=== PATIENT | female | born 1965 | race African-American/Black ===

== ENCOUNTER 2018-08-18 22:56 | Emergency (ER) | payer SELFPAY ==
--- NOTE | 2018-08-19 01:38 | ED ---
Throat Pain/Nasal Congestion - HPI Summary HPI Summary: The pt is a 53 y/o female presenting to [facility] c/o epistaxis that started after sneezing at 22:00 hrs. As per EMS, the bleeding has stopped by the time they picked the patient. The pt reports marijuana use and unquantified ETOH consumption. She reports associated blood clots. She reports a history of nosebleed but said this one was extensive. She denies any trauma. There was no active bleeding at the time of arrival. - History of Current Complaint Chief Complaint: EDEpistaxis Time Seen by Provider: 08/19/18 01:26 Hx Obtained From: Patient, EMS Onset/Duration: Sudden Onset - 22:00 hrs Severity: Moderate - Allergies/Home Medications Allergies/Adverse Reactions: Allergies Allergy/AdvReac Type Severity Reaction Status Date / Time pollen extracts Allergy Eyes Verified 08/18/18 23:06 Itchy/Swollen/Red/Watery PMH/Surg Hx/FS Hx/Imm Hx Previously Healthy: No Endocrine/Hematology History: Reports: Hx Sickle Cell Disease - Full blown Cardiovascular History: Reports: Hx Myocardial Infarction - x 2 GI History: Reports: Hx Gastrointestinal Bleed Neurological History: Reports: Hx Seizures - Cancer History Cancer Type, Location and Year: None reported - Immunization History Date of Tetanus Vaccine: unsure Date of Influenza Vaccine: never Infectious Disease History: No Infectious Disease History: Denies: Traveled Outside the [place] in Last 30 Days - Family History Known Family History: Positive: Blood Disorder - Sickle cell trait - Social History Occupation: Unemployed Lives: Alone Alcohol Use: Daily Alcohol Amount: unk Hx Substance Use: Yes Substance Use Type: Reports: Cocaine Substance Use Comment - Amount & Last Used: crack - today Hx Tobacco Use: Yes Smoking Status (MU): Current Every Day Smoker Review of Systems Positive: Fatigue Positive: Epistaxis - With blood clots All Other Systems Reviewed And Are Negative: Yes Physical Exam - Summary Physical Exam Summary: GENERAL: Patient is a well developed and nourished F who is lying comfortable in the stretcher. Patient is not in any acute respiratory distress. HEAD AND FACE: Normocephalic EYES: PERRLA, EOMI x 2. EARS: Hearing grossly intact. MOUTH: Oropharynx within normal limits. NECK: Supple, trachea is midline, no adenopathy, no JVD, no carotid bruit. CHEST: Symmetric, no tenderness at palpation LUNGS: Clear to auscultation bilaterally. No wheezing or crackles. CVS: Regular rate and rhythm, S1 and S2 present, no murmurs or gallops appreciated. ABDOMEN: Soft, non-tender. Bowel sounds are normal. No abdominal abnormal pulsations. EXTREMITIES: Full ROM in all major joints, no edema, no cyanosis or clubbing. NEURO: Alert and oriented x 3. No acute neurological deficits. Speech is normal and follows commands. SKIN: Dry and warm Triage Information Reviewed: Yes Vital Signs On Initial Exam: Initial Vitals Temp Pulse Resp BP Pulse Ox 97.8 F 66 16 119/64 98 08/18/18 23:04 08/18/18 23:04 08/18/18 23:04 08/18/18 23:04 08/18/18 23:04 Vital Signs Reviewed: Yes Diagnostics - Vital Signs Vital Signs Temp Pulse Resp BP Pulse Ox 08/18/18 23:04 97.8 F 66 16 119/64 98 - Laboratory Lab Statement: Any lab studies that have been ordered have been reviewed, and results considered in the medical decision making process. EENT Course/Dx - Course Course Of Treatment: A 53 year-old F presents to the ED with a CC of sudden onset epistaxis without active bleeding. Bleeding subsided prior to arrival to the emergency room. The pt reports marijuana use and unquantified ETOH consumption. Patient was observed here in the emergency room for an extended period of time with no evidence of epistaxis. The patient was given a meal and was able to ambulate here in the emergency room without difficulty. A physical exam is unremarkable. The pt will be discharged with a final Dx of epistaxis. I discussed results with patient and she agrees with this plan. She is hemodynamically stable upon discharge. Strict return precautions given and she will otherwise follow up with an ENT specialist. Allergies noted. - Diagnoses Provider Diagnoses: Epistaxis not due to trauma Discharge - Sign-Out/Discharge Documenting (check all that apply): Patient Departure - DC - Discharge Plan Condition: Improved Disposition: HOME Patient Education Materials: Nosebleed (ED) Referrals: Ivan Mays MD [Primary Care Provider] - Jhonny Vaughn MD [Medical Doctor] - Additional Instructions: Follow up with ENT as soon as possible. Return to ED for any new or worsening symptoms - Billing Disposition and Condition Condition: IMPROVED Disposition: Home - Attestation Statements Document Initiated by Brendenibisrrael: Yes Documenting Scribe: Sara Bliar Provider For Whom Chante is Documenting (Include Credential): Dr. Adriel Frey MD Scribe Attestation: Sara Greco , scribed for Dr. Adriel Frey MD on 08/19/18 at 0635. Scribe Documentation Reviewed: Yes Provider Attestation: The documentation as recorded by the brendenibSara arcos accurately reflects the service I personally performed and the decisions made by me, Dr. Adriel Frey MD
[2018-08-19 03:07] VITALS: BP 109/67
== END 2018-08-19 03:06 | disposition home or self-care (01) ==
LOC: ED 22:56
DX: R04.0 Epistaxis (principal); R53.83 Other fatigue; F17.200 Nicotine dependence, unspecified, uncomplicated
CPT/HCPCS: 99281

== ENCOUNTER 2019-02-27 15:10 | Emergency (ER) | payer SELFPAY ==
[2019-02-27 16:07] LABS: Hematocrit 37 % (35-47); Hemoglobin 12.3 g/dL (12.0-16.0); Mean Corpuscular HGB Conc 34 g/dL (31-36); Mean Corpuscular Hemoglobin 28 pg (27-31); Mean Corpuscular Volume 85 fL (80-97); Red Blood Count 4.33 10^6 /uL (3.70-4.87); Red Cell Distribution Width 14 % (10.5-15); White Blood Count 6.4 10^3/uL (3.5-10.8)
[2019-02-27 16:35] LABS: Mean Platelet Volume 10.9 fL (7.4-10.4); Platelet Count 59 10^3/uL (150-450)
[2019-02-27 16:36] LABS: ABS Eosinophils 0.2 10^3/ul (0-0.6); ABS Lymphocytes 4.2 10^3/ul (1.0-4.8); ABS Monocytes 0.7 10^3/ul (0-0.8); ABS Neutrophils 1.4 10^3/ul (1.5-7.7); Eosinophil % 2.5 %; Large Platelets Present; Lymphocyte % 64.8 %; Nucleated Red Blood Cells % 0.2
[2019-02-27 16:50] LABS: Albumin 3.3 g/dL (3.2-5.2); Calcium 9.3 mg/dL (8.6-10.3); Potassium 4.3 mmol/L (3.5-5.0); Total Bilirubin 0.5 mg/dL (0.2-1.0)
--- NOTE | 2019-02-27 16:57 | ED ---
HPI Chest Pain - HPI Summary HPI Summary: This patient is a 54 year old F brought in by EMS is presenting to [facility] with a chief complaint of mid sternal chest pain that is described as something pulling my chest apart. Patient rates the pain 10/10. The pain started a couple hours ago and has been constant since onset. Patient reports that she has been coughing for the past 2 weeks. She additionally endorses congestion. Breathing and movement aggravates the pain. Patient reports associated symptoms of swelling in the legs and muscle cramps. Patient denies abdominal pain, fever , rhinorrhea, and sore throat. She reports no alleviating factors. Patient has a Hx of cocaine usage. - History of Current Complaint Chief Complaint: EDUpperRespComplaint Time Seen by Provider: 02/27/19 15:23 Hx Obtained From: Patient Onset/Duration: Started Hours Ago, Still Present Timing: Constant, Lasting Hours Initial Severity: Severe Current Severity: Severe Pain Intensity: 9 Pain Scale Used: 0-10 Numeric Chest Pain Location: Mid Sternal Chest Pain Radiates: No Character: Other: - "pulling my chest apart" Aggravating Factor(s): Movement, Deep Breaths Alleviating Factor(s): Nothing Associated Signs and Symptoms: Positive: Chest Pain, Swelling - BLE, Nonproductive Cough - 2 weeks prior to chest pain, Other: - muscle cramps, congestion; no rhinorrhea, no sore throat. Negative: Fever, Abdominal Pain - Allergy/Home Medications Allergies/Adverse Reactions: Allergies Allergy/AdvReac Type Severity Reaction Status Date / Time pollen extracts Allergy Eyes Verified 08/18/18 23:06 Itchy/Swollen/Red/Watery PMH/Surg Hx/FS Hx/Imm Hx Previously Healthy: No Endocrine/Hematology History: Reports: Hx Sickle Cell Disease - Full blown Cardiovascular History: Reports: Hx Myocardial Infarction - x 2 GI History: Reports: Hx Gastrointestinal Bleed Neurological History: Reports: Hx Seizures - Cancer History Cancer Type, Location and Year: None reported - Immunization History Date of Tetanus Vaccine: unsure Date of Influenza Vaccine: never Infectious Disease History: No Infectious Disease History: Denies: Traveled Outside the [place] in Last 30 Days - Family History Known Family History: Positive: Blood Disorder - Sickle cell trait - Social History Alcohol Use: Daily Alcohol Amount: unk Hx Substance Use: Yes Substance Use Type: Reports: Cocaine Substance Use Comment - Amount & Last Used: crack - today Hx Tobacco Use: Yes Smoking Status (MU): Current Every Day Smoker Review of Systems Negative: Fever ENT: Other - POSITIVE - CHEST PAIN Negative: Sore Throat, Nasal Discharge Positive: Chest Pain Positive: Cough - 2 weeks Negative: Abdominal Pain Positive: Edema - in legs, Other - muscle cramps All Other Systems Reviewed And Are Negative: Yes Physical Exam - Summary Physical Exam Summary: Appearance: The patient is well-nourished in no acute distress and in no acute pain. Skin: The skin is warm and dry and skin color reflects adequate perfusion. HEENT: The head is normocephalic and atraumatic. The pupils are equal and reactive. The conjunctivae are clear and without drainage. Nares are patent and without drainage. Mouth reveals moist mucous membranes and the throat is without erythema and exudate. The external ears are intact. The ear canals are patent and without drainage. The tympanic membranes are intact. Neck: The neck is supple with full range of motion and non-tender. There are no carotid bruits. There is no neck vein distension. Respiratory: Chest is non-tender. Lungs are clear to auscultation and breath sounds are symmetrical and equal. Cardiovascular: Heart is regular rate and rhythm. There is no murmur or rub auscultated. There is no peripheral edema and pulses are symmetrical and equal. Abdomen: The abdomen is soft and non-tender. There are normal bowel sounds heard in all four quadrants and there is no organomegaly palpated. Musculoskeletal: There is no back tenderness noted. Extremities are non-tender with full range of motion. There is good capillary refill. There is no peripheral edema or calf tenderness elicited. Neurological: Patient is alert and oriented to person, place and time. The patient has symmetrical motor strength in all four extremities. Cranial nerves are grossly intact. Deep tendon reflexes are symmetrical and equal in all four extremities. Psychiatric: The patient has an appropriate affect and does not exhibit any anxiety or depression Triage Information Reviewed: Yes Vital Signs On Initial Exam: Initial Vitals Temp Pulse Resp BP Pulse Ox 98.4 F 80 15 118/69 95 02/27/19 15:17 02/27/19 15:17 02/27/19 15:17 02/27/19 15:17 02/27/19 15:17 Vital Signs Reviewed: Yes Diagnostics - Vital Signs Vital Signs Temp Pulse Resp BP Pulse Ox 02/27/19 16:22 79 107/72 99 02/27/19 16:00 79 99 02/27/19 15:35 91 98 02/27/19 15:20 98.4 F 78 16 118/69 100 02/27/19 15:17 98.4 F 80 15 118/69 95 - Laboratory Lab Results: Lab Results 02/27/19 02/27/19 02/27/19 Range/Units 15:37 15:37 15:37 WBC 6.4 (3.5-10.8) 10^3/uL RBC 4.33 (3.70-4.87) 10^6 /uL Hgb 12.3 (12.0-16.0) g/dL Hct 37 (35-47) % MCV 85 (80-97) fL MCH 28 (27-31) pg MCHC 34 (31-36) g/dL RDW 14 (10.5-15) % Plt Count 59 L (150-450) 10^3/uL MPV 10.9 H (7.4-10.4) fL Neut % (Auto) 21.6 % Lymph % (Auto) 64.8 % Rock % (Auto) 10.6 % Eos % (Auto) 2.5 % Baso % (Auto) 0.5 % Absolute Neuts (auto) 1.4 L (1.5-7.7) 10^3/ul Absolute Lymphs (auto) 4.2 (1.0-4.8) 10^3/ul Absolute Monos (auto) 0.7 (0-0.8) 10^3/ul Absolute Eos (auto) 0.2 (0-0.6) 10^3/ul Absolute Basos (auto) 0.0 (0-0.2) 10^3/ul Absolute Nucleated RBC 0.0 10^3/ul Nucleated RBC % 0.2 Large Platelets Present Hem Pathologist Commnt Pending Sodium 142 (135-145) mmol/L Potassium 4.3 (3.5-5.0) mmol/L Chloride 106 (101-111) mmol/L Carbon Dioxide 28 (22-32) mmol/L Anion Gap 8 (2-11) mmol/L BUN Pending Creatinine Pending Est GFR ( Amer) Pending Est GFR (Non-Af Amer) Pending BUN/Creatinine Ratio Pending Glucose Pending Lactic Acid 2.0 (0.5-2.0) mmol/L Calcium 9.3 (8.6-10.3) mg/dL Total Bilirubin 0.50 (0.2-1.0) mg/dL AST Pending ALT Pending Alkaline Phosphatase Pending Troponin I Pending Total Protein Pending Albumin 3.3 (3.2-5.2) g/dL Globulin Pending Albumin/Globulin Ratio Pending 02/27/19 Range/Units 15:58 WBC (3.5-10.8) 10^3/uL RBC (3.70-4.87) 10^6 /uL Hgb (12.0-16.0) g/dL Hct (35-47) % MCV (80-97) fL MCH (27-31) pg MCHC (31-36) g/dL RDW (10.5-15) % Plt Count (150-450) 10^3/uL MPV (7.4-10.4) fL Neut % (Auto) % Lymph % (Auto) % Rock % (Auto) % Eos % (Auto) % Baso % (Auto) % Absolute Neuts (auto) (1.5-7.7) 10^3/ul Absolute Lymphs (auto) (1.0-4.8) 10^3/ul Absolute Monos (auto) (0-0.8) 10^3/ul Absolute Eos (auto) (0-0.6) 10^3/ul Absolute Basos (auto) (0-0.2) 10^3/ul Absolute Nucleated RBC 10^3/ul Nucleated RBC % Large Platelets Hem Pathologist Commnt Sodium (135-145) mmol/L Potassium (3.5-5.0) mmol/L Chloride (101-111) mmol/L Carbon Dioxide (22-32) mmol/L Anion Gap (2-11) mmol/L BUN Creatinine Est GFR ( Amer) Est GFR (Non-Af Amer) BUN/Creatinine Ratio Glucose Lactic Acid (0.5-2.0) mmol/L Calcium (8.6-10.3) mg/dL Total Bilirubin (0.2-1.0) mg/dL AST ALT Alkaline Phosphatase Troponin I 0.01 Total Protein Albumin (3.2-5.2) g/dL Globulin Albumin/Globulin Ratio Result Diagrams: 02/27/19 15:37 02/27/19 15:37 Lab Statement: Any lab studies that have been ordered have been reviewed, and results considered in the medical decision making process. - Radiology CXR Radiology Interpretation Completed By: Radiologist Summary of Radiographic Findings: NO ACTIVE CARDIOPULMONARY DISEASE IS NOTED. ED physician has reviewed this report. Chest Pain Course/Dx - Course Course Of Treatment: Ms. Hernandez presents complaining that she's been coughing a lot for the last couple of weeks and now she has a tearing chest pain. It's aggravated by deep breaths and cough. She is not short of breath. She was nontoxic in appearance with stable vital signs and kept on the monitor while workup was in progress. She had 2 negative troponins as well as chest x-ray and EKG. Her urine did come back positive for cocaine but she felt complaint lately improved after some Robitussin with codeine. And again her troponins and EKG were unremarkable. - Diagnoses Provider Diagnoses: Chest wall pain Discharge - Sign-Out/Discharge Documenting (check all that apply): Patient Departure - discharge Patient Received Moderate/Deep Sedation with Procedure: No - Discharge Plan Condition: Stable Disposition: HOME Prescriptions: Codeine Phosphate/Guaifenesin [Guaiatussin AC Liquid] 5 ml PO Q4HR #120 ml MDD 30 cc Patient Education Materials: Chest Wall Pain (ED) Referrals: Ivan Mays MD [Primary Care Provider] - 2 Days Additional Instructions: RETURN TO ED FOR ANY NEW OR WORSENING SYMPTOMS. FOLLOW UP WITH YOUR PRIMARY CARE PHYSICIAN WITHIN TWO DAYS. - Billing Disposition and Condition Condition: STABLE Disposition: Home - Attestation Statements Document Initiated by Scribe: Yes Documenting Scribe: Jerome Bah Provider For Whom Chante is Documenting (Include Credential): Dino Grove MD Scribe Attestation: Manny Greco Jacob Kolenda, scribed for Dino Grove MD on 02/28/19 at 1044. Scribe Documentation Reviewed: Yes Provider Attestation: The documentation as recorded by the krisibManny arcos Jacob Kolenda accurately reflects the service I personally performed and the decisions made by me, Dino Grove MD Status of Scribe Document: Viewed
[2019-02-27 17:04] LABS: Urine Benzodiazepine Screen None Detected (None Detect); Urine Opiates Screen None Detected (None Detect)
[2019-02-27 17:05] LABS: Albumin/Globulin Ratio 0.7 (1-3); BUN/Creatinine Ratio 18.7 (8-20); EGFR African American 98.2 (>60); EGFR Non-African American 81.1 (>60); Globulin 4.5 g/dL (2-4); Total Protein 7.8 g/dL (6.4-8.9)
[2019-02-27] MEDS ORDERED: Ketorolac INJ* 30 MG/ML 1 ML VIAL IV PUSH ONE (17:20)
[2019-02-27 18:06] LABS: Troponin I 0.01 ng/mL (<0.04)
[2019-02-27 18:45] VITALS: BP 128/66
== END 2019-02-27 18:45 | disposition home or self-care (01) ==
LOC: ED 15:10
DX: R07.89 Other chest pain (principal); D57.1 Sickle-cell disease without crisis; I25.2 Old myocardial infarction; R56.9 Unspecified convulsions; F17.210 Nicotine dependence, cigarettes, uncomplicated
CPT/HCPCS: 36415; 71045; 80053; 80307; 83605; 84484; 85025; 85060; 96374; 99283; J1885

== ENCOUNTER 2021-06-17 09:48 | Inpatient (IN) ==
[2021-06-17] MEDS ORDERED: Lactated Ringers 1000 ml BAG IV.FLUID IV ONE (10:43)
[2021-06-17 11:41] LABS: Rapid COVID-19 Molecular Undetected (Undetected)
[2021-06-17 11:44] LABS: Immature Retic Fraction 0.52; RBC Retic Count 3.46 10^6/uL (3.70-4.87); Red Blood Count 3.46 10^6 /uL (3.70-4.87)
[2021-06-17 11:45] LABS: ALT 18 U/L (7-52); AST 49 U/L (13-39); Albumin 2.7 g/dL (3.2-5.2); Albumin/Globulin Ratio 0.5 (1-3); Alkaline Phosphatase 112 U/L (35-149); Anion Gap 10 mmol/L (2-11); Blood Urea Nitrogen 8 mg/dL (6-24); C Reactive Protein 28.78 mg/L (<8.01); CO2 Carbon Dioxide 22 mmol/L (22-32); Calcium 8.2 mg/dL (8.6-10.3); Chloride 101 mmol/L (101-111); EGFR African American 126.1 (>60); EGFR Non-African American 104.2 (>60); Glucose 79 mg/dL (70-100); Potassium 3.7 mmol/L (3.5-5.0); Sodium 133 mmol/L (135-145); Total Protein 7.7 g/dL (6.4-8.9)
[2021-06-17 11:45] LABS: ABS Lymphocytes 1.4 10^3/ul (1.0-4.8); ABS Monocytes 0.8 10^3/ul (0-0.8); ABS Neutrophils 5.1 10^3/ul (1.5-7.7); Corrected Retic Count 1.3 % (0.5-1.5); Hematocrit 26 % (35-47); Hematocrit for Retic CNT 26 % (35-47); Hemoglobin 8.8 g/dL (12.0-16.0); Lymphocyte % 19.5 %; Mean Corpuscular HGB Conc 34 g/dL (31-36); Mean Corpuscular Hemoglobin 26 pg (27-31); Mean Corpuscular Volume 76 fL (80-97); Mean Platelet Volume 9.2 fL (7.4-10.4); Nucleated Red Blood Cells % 0.1; Platelet Count 75 10^3/uL (150-450); Red Cell Distribution Width 26 % (10-15); White Blood Count 7.3 10^3/uL (3.5-10.8)
[2021-06-17] MEDS ORDERED: Lorazepam PYXIS KEY PRN ×2 (11:47→16:00)
[2021-06-17] MEDS ORDERED: LORazepam 2 mg VIAL 1 ml IV PUSH ONE ×2 (11:47)
[2021-06-17] MEDS ORDERED: cefTRIAXone 1 gm/50 mL NS BAG 1 GM/50 ML BAG IV ONE ×2 (11:52)
[2021-06-17] MEDS ORDERED: Azithromycin 500 mg/250 ml NS 500 MG/250 ML BAG IVPB ONE ×2 (11:52)
[2021-06-17 12:53] LABS: LDH 295 U/L (140-271)
[2021-06-17 13:01] LABS: Troponin I 0.01 ng/mL (<0.03)
[2021-06-17] MEDS ORDERED: Lactated Ringers 1000 ml BAG 1,000 ML IV ONE ×2 (13:57→15:40)
[2021-06-17] MEDS ORDERED: fentaNYL 100 mcg/2 ml 50 MCG/ML VIAL IV SLOW PU PRN ×2 (15:40)
[2021-06-17] MEDS ORDERED: Magnesium Hydroxide LIQ 30 ML UDC PO PRN (15:41)
[2021-06-17] MEDS ORDERED: Ondansetron 4 mg VIAL 2 MG/ML 2 ml VIAL IV PRN (15:41)
[2021-06-17] MEDS ORDERED: Morphine 2 MG/ML SYRINGE IV PRN (15:57)
[2021-06-17] MEDS ORDERED: LORazepam 2 mg VIAL 1 ml IV PUSH PRN (16:00)
[2021-06-17 16:56] LABS: Influenza A Molecular Negative (Negative); Influenza B Molecular Negative (Negative)
[2021-06-17] MEDS ORDERED: Acetaminophen IV 1 GM/100ML 100 ML IV PRN (17:32)
[2021-06-17] MEDS ORDERED: Piperacillin/Tazobac ADVAN 3.375 GM in NS 0.9% 100 ml BAG 100 ML IV ONE (17:36)
[2021-06-17] MEDS ORDERED: Vancomycin per Pharmacy 1 EA NOTE FOLLOW UP PRN (17:51)
[2021-06-17] MEDS: Acetaminophen IV 1 GM/100ML 100 ML IV PRN (17:57)
[2021-06-17] MEDS ORDERED: Vancomycin 1,000 MG in NS 0.9% 250 ml 250 ML IVPB ONE (18:00)
[2021-06-17] MEDS ORDERED: Zosyn per Pharmacy NOTE FOLLOW UP SCH (18:00)
[2021-06-17] MEDS ORDERED: Lactated Ringers 1000 ml BAG 1,000 ML IV SCH (20:00)
[2021-06-17 20:26] LABS: Creatine Kinase 65 U/L (10-223)
[2021-06-17 21:20] LABS: Urine Appearance Clear; Urine Bilirubin Negative (Negative); Urine Blood Negative (Negative); Urine Color Yellow; Urine Glucose Negative (Negative); Urine Ketones Negative (Negative); Urine Nitrite Negative (Negative); Urine Protein Negative (Negative); Urine Specific Gravity 1.008 (1.002-1.030); Urine Urobilinogen Negative (Negative)
[2021-06-17 21:29] LABS: Urine Benzodiazepine Screen None Detected (None Detect); Urine Cannabinoids Screen None Detected (None Detect); Urine Opiates Screen None Detected (None Detect)
[2021-06-17] MEDS ORDERED: ZOSYN 3.375 GM Q8H per EXTENDED INFUSION IV SCH (22:00)
[2021-06-17] MEDS: Morphine 2 MG/ML SYRINGE IV PRN (22:53)
[2021-06-17] MEDS: ZOSYN 3.375 GM Q8H per EXTENDED INFUSION IV SCH (22:57)
[2021-06-18] MEDS: Vancomycin 750 MG in NS 0.9% 250 ML IVPB SCH ×3 (02:32→17:09)
[2021-06-18] MEDS: D5W 1/2 NS 1000 ml BAG 1,000 ML IV SCH ×2 (04:15→12:47)
[2021-06-18] MEDS: ZOSYN 3.375 GM Q8H per EXTENDED INFUSION IV SCH ×2 (06:27→15:47)
[2021-06-18 07:22] LABS: Hematocrit 32 % (35-47); Hemoglobin 10.7 g/dL (12.0-16.0); Mean Corpuscular HGB Conc 33 g/dL (31-36); Mean Corpuscular Hemoglobin 26 pg (27-31); Mean Corpuscular Volume 79 fL (80-97); Mean Platelet Volume 9.1 fL (7.4-10.4); Platelet Count 56 10^3/uL (150-450); Red Blood Count 4.07 10^6 /uL (3.70-4.87); Red Cell Distribution Width 25 % (10-15); White Blood Count 5.5 10^3/uL (3.5-10.8)
[2021-06-18 07:44] LABS: Folate 14.28 ng/mL (5.90-24.80)
[2021-06-18 08:07] LABS: Microcytosis 1+
[2021-06-18 08:08] LABS: Anisocytosis 1+; Target Cells 2+
[2021-06-18 08:10] LABS: ABS Lymphocytes 2.4 10^3/ul (1.0-4.8); ABS Monocytes 0.5 10^3/ul (0-0.8); ABS Neutrophils 2.6 10^3/ul (1.5-7.7); Eosinophil % 0.3 %; Nucleated Red Blood Cells % 0.1
[2021-06-18 08:24] LABS: Albumin 2.2 g/dL (3.2-5.2); Calcium 7.6 mg/dL (8.6-10.3); Potassium 3.4 mmol/L (3.5-5.0); Total Bilirubin 1.4 mg/dL (0.2-1.0)
[2021-06-18 08:30] LABS: Albumin/Globulin Ratio 0.5 (1-3); EGFR African American 121.4 (>60); EGFR Non-African American 100.3 (>60); Globulin 4.6 g/dL (2-4); Total Protein 6.8 g/dL (6.4-8.9)
[2021-06-18] MEDS ORDERED: Azithromycin 500 mg/250 ml NS 500 MG/250 ML BAG IVPB SCH (09:00)
[2021-06-18] MEDS ORDERED: cefTRIAXone 1 gm/50 mL NS BAG 1 GM/50 ML BAG IVPB SCH (09:00)
[2021-06-18] MEDS ORDERED: Perflutren Lipid Microsphere 3 ML VIAL ONE (09:20)
[2021-06-18] MEDS ORDERED: Perflutren Lipid Microsphere 3 ML VIAL INJ ONE (09:21)
[2021-06-18] MEDS: Morphine 2 MG/ML SYRINGE IV PRN ×3 (10:55→21:45)
[2021-06-18] MEDS: Azithromycin 500 mg/250 ml NS 500 MG/250 ML BAG IVPB SCH (10:58)
[2021-06-18] MEDS ORDERED: Furosemide 20 mg/2 ml IV VIAL IV SLOW PU ONE ×3 (13:31→21:40)
[2021-06-18] MEDS ORDERED: Benzocaine/Menthol LOZ PO PRN ×2 (15:31)
[2021-06-18] MEDS: guaiFENesin 100 mg/5 ml LIQ unit dose cup PO SCH ×2 (15:52→21:13)
[2021-06-18] MEDS ORDERED: Albuterol/Ipratropium NEB.SOL (2.5/0.5 MG) 3 ML NEB.SOLN INH SCH ×2 (16:00)
[2021-06-18] MEDS ORDERED: guaiFENesin 100 mg/5 ml LIQ unit dose cup PO SCH (16:00)
[2021-06-18] MEDS ORDERED: D5W 1/2 NS 1000 ml BAG 1,000 ML IV SCH ×2 (16:06→20:56)
[2021-06-18] MEDS ORDERED: Sodium Chloride(INHALANT)0.9% 5 ML NEB.SOLN INH PRN (16:49)
[2021-06-18] MEDS ORDERED: Cefepime 1 GM in Dextrose 1 GM/50 ML BAG IV SCH (17:00)
[2021-06-18] MEDS: Cefepime 1 GM in Dextrose 1 GM/50 ML BAG IV SCH (17:14)
[2021-06-18] MEDS ORDERED: Albuterol/Ipratropium NEB.SOL (2.5/0.5 MG) 3 ML NEB.SOLN INH PRN (18:07)
[2021-06-18] MEDS ORDERED: Potassium Chlor 20 meq TAB.ER PO ONE ×2 (18:17)
[2021-06-18] MEDS: Acetaminophen IV 1 GM/100ML 100 ML IV PRN (21:12)
[2021-06-19] MEDS: Vancomycin 750 MG in NS 0.9% 250 ML IVPB SCH ×3 (02:27→17:19)
[2021-06-19] MEDS: Cefepime 1 GM in Dextrose 1 GM/50 ML BAG IV SCH ×2 (05:58→17:15)
[2021-06-19] MEDS: guaiFENesin 100 mg/5 ml LIQ unit dose cup PO SCH ×4 (05:58→20:01)
[2021-06-19 06:36] LABS: Hematocrit 33 % (35-47); Hemoglobin 10.9 g/dL (12.0-16.0); Mean Corpuscular HGB Conc 34 g/dL (31-36); Mean Corpuscular Hemoglobin 26 pg (27-31); Mean Corpuscular Volume 78 fL (80-97); Red Blood Count 4.16 10^6 /uL (3.70-4.87); Red Cell Distribution Width 25 % (10-15); White Blood Count 7.9 10^3/uL (3.5-10.8)
[2021-06-19 06:43] LABS: Calcium 7.4 mg/dL (8.6-10.3); Magnesium 1.2 mg/dL (1.9-2.7); Potassium 3.1 mmol/L (3.5-5.0)
[2021-06-19 06:48] LABS: EGFR African American 139.4 (>60); EGFR Non-African American 115.2 (>60)
[2021-06-19] MEDS ORDERED: Magnesium Sulfate IV 3 GM in NS 0.9% 100 ml BAG 100 ML IVPB ONE (07:30)
[2021-06-19 08:16] LABS: Platelet Count 48 10^3/uL (150-450)
[2021-06-19] MEDS ORDERED: Potassium Chlor 20 meq TAB.ER PO SCH (09:00)
[2021-06-19] MEDS ORDERED: Vancomycin Trough Check NOTE FOLLOW UP ONE (09:30)
[2021-06-19] MEDS: Potassium Chlor 20 meq TAB.ER PO SCH ×2 (10:27→19:56)
[2021-06-19] MEDS: Azithromycin 500 mg/250 ml NS 500 MG/250 ML BAG IVPB SCH (10:27)
[2021-06-19 10:31] LABS: EGFR African American 142.4 (>60); EGFR Non-African American 117.6 (>60)
[2021-06-19 10:51] LABS: Vancomycin Trough 11.2 mcg/mL
[2021-06-19 10:59] LABS: Phosphorus 3.7 mg/dL (2.5-5.0)
[2021-06-19 11:33] LABS: Activated Partial Thrombo Time 40.8 seconds (26.0-38.0); Fibrinogen 224.4 mg/dL (110.8-404.3); INR 2.47 (0.86-1.15)
[2021-06-19] MEDS ORDERED: Furosemide 20 mg/2 ml IV VIAL IV SLOW PU ONE ×2 (13:31)
[2021-06-19 18:25] LABS: Adenovirus Undetected (Undetected); Bordetella parapertussis Undetected (Undetected); Bordetella pertussis Undetected (Undetected); Chlamydophila pneumoniae Undetected (Undetected); Coronavirus 229E Undetected (Undetected); Coronavirus HKU1 Undetected (Undetected); Coronavirus NL63 Undetected (Undetected); Coronavirus OC43 Undetected (Undetected); Human Metapneumovirus Undetected (Undetected); Human Rhinovirus/Enterovirus Undetected (Undetected); Influenza A Undetected (Undetected); Influenza B Undetected (Undetected); Mycoplasmoides pneumoniae Undetected (Undetected); Parainfluenza Virus 1 Undetected (Undetected); Parainfluenza Virus 2 Undetected (Undetected); Parainfluenza Virus 3 Undetected (Undetected); Parainfluenza Virus 4 Undetected (Undetected); Respiratory Syncytial Virus Undetected (Undetected); Specimen Source NASOPHARYNGEAL SWAB
[2021-06-19] MEDS: Morphine 2 MG/ML SYRINGE IV PRN ×2 (19:49→23:53)
[2021-06-19] MEDS: Acetaminophen IV 1 GM/100ML 100 ML IV PRN (22:08)
[2021-06-20] MEDS: Vancomycin 750 MG in NS 0.9% 250 ML IVPB SCH ×3 (01:50→17:22)
[2021-06-20] MEDS: Cefepime 1 GM in Dextrose 1 GM/50 ML BAG IV SCH ×2 (05:07→17:22)
[2021-06-20] MEDS: guaiFENesin 100 mg/5 ml LIQ unit dose cup PO SCH ×4 (05:07→20:51)
[2021-06-20 06:00] LABS: Hematocrit 31 % (35-47); Hemoglobin 10.3 g/dL (12.0-16.0); Mean Corpuscular HGB Conc 34 g/dL (31-36); Mean Corpuscular Hemoglobin 27 pg (27-31); Mean Corpuscular Volume 79 fL (80-97); Platelet Count 55 10^3/uL (150-450); Red Cell Distribution Width 25 % (10-15); White Blood Count 6.9 10^3/uL (3.5-10.8)
[2021-06-20 06:14] LABS: Calcium 7.3 mg/dL (8.6-10.3); EGFR African American 119.2 (>60); EGFR Non-African American 98.5 (>60); Magnesium 1.8 mg/dL (1.9-2.7); Phosphorus 2.9 mg/dL (2.5-5.0)
[2021-06-20 06:58] LABS: Potassium 3.3 mmol/L (3.5-5.0)
[2021-06-20] MEDS: Azithromycin 500 mg/250 ml NS 500 MG/250 ML BAG IVPB SCH (08:20)
[2021-06-20] MEDS ORDERED: Potassium Chlor 20 meq TAB.ER PO ONE (08:29)
[2021-06-20 09:26] LABS: HIV 4th Generation Nonreactive (Nonreactive)
[2021-06-20] MEDS: Potassium Chlor 20 meq TAB.ER PO SCH ×2 (12:01→20:58)
[2021-06-20] MEDS ORDERED: Dexamethasone IV 4 MG/ML VIAL 1 ml VIAL IV SLOW PU SCH (13:00)
[2021-06-20] MEDS ORDERED: Dexamethasone IV 6 MG in NS 0.9% 50 ML 50 ML IVPB SCH (13:00)
[2021-06-20] MEDS: Dexamethasone IV 4 MG/ML VIAL 1 ml VIAL IV SLOW PU SCH (13:02)
[2021-06-20 14:59] LABS: Albumin 1.9 g/dL (3.4-4.7); Albumin/Globulin Ratio 0.45; Gamma Globulin 2.6 g/dL (0.6-1.6); Total Protein(PEP) 6.3 g/dL (6.3 - 7.9)
[2021-06-20 16:25] LABS: Hb A 68.6 % (95.8-98.0); Hb A2 2.5 % (2.0-3.3); Variant 1 28.9 Hb S % (0.0)
[2021-06-20] MEDS: Morphine 2 MG/ML SYRINGE IV PRN ×2 (20:52→23:59)
[2021-06-21] MEDS: Vancomycin 750 MG in NS 0.9% 250 ML IVPB SCH ×3 (01:48→18:14)
[2021-06-21] MEDS: guaiFENesin 100 mg/5 ml LIQ unit dose cup PO SCH ×4 (04:47→21:44)
[2021-06-21] MEDS: Cefepime 1 GM in Dextrose 1 GM/50 ML BAG IV SCH ×2 (04:47→17:05)
[2021-06-21 05:55] LABS: Hematocrit 35 % (35-47); Hemoglobin 11.5 g/dL (12.0-16.0); Mean Corpuscular HGB Conc 33 g/dL (31-36); Mean Corpuscular Hemoglobin 26 pg (27-31); Mean Corpuscular Volume 79 fL (80-97); Mean Platelet Volume 8.8 fL (7.4-10.4); Platelet Count 66 10^3/uL (150-450); Red Blood Count 4.43 10^6 /uL (3.70-4.87); Red Cell Distribution Width 25 % (10-15); White Blood Count 6.9 10^3/uL (3.5-10.8)
[2021-06-21 06:06] LABS: Anion Gap 7 mmol/L (2-11); Blood Urea Nitrogen 13 mg/dL (6-24); CO2 Carbon Dioxide 25 mmol/L (22-32); Calcium 7.5 mg/dL (8.6-10.3); Chloride 105 mmol/L (101-111); EGFR African American 136.5 (>60); EGFR Non-African American 112.8 (>60); Glucose 141 mg/dL (70-100); Magnesium 1.8 mg/dL (1.9-2.7); Phosphorus 3.1 mg/dL (2.5-5.0); Potassium 3.5 mmol/L (3.5-5.0); Sodium 137 mmol/L (135-145)
[2021-06-21] MEDS ORDERED: Magnesium Sulfate IV 1GM/100ML 1 GM/100 ML BAG IV ONE ×2 (07:00)
[2021-06-21] MEDS: Dexamethasone IV 4 MG/ML VIAL 1 ml VIAL IV SLOW PU SCH (08:09)
[2021-06-21] MEDS: Potassium Chlor 20 meq TAB.ER PO SCH ×2 (09:33→21:45)
[2021-06-21 11:39] LABS: % Iron Saturation 8 % (15-55); Iron < 20 ug/dL (50-212); Total Iron Binding Capacity 245 mcg/dL (250-450); Transferrin 175 mg/dL (203-362); Unsaturated Iron Binding < 230 ug/dL
[2021-06-21 17:22] LABS: Ferritin 123.3 ng/mL (11-307)
[2021-06-22] MEDS: Vancomycin 750 MG in NS 0.9% 250 ML IVPB SCH ×2 (01:26→10:01)
[2021-06-22] MEDS: guaiFENesin 100 mg/5 ml LIQ unit dose cup PO SCH ×4 (04:03→20:49)
[2021-06-22] MEDS: Cefepime 1 GM in Dextrose 1 GM/50 ML BAG IV SCH ×2 (04:03→16:28)
[2021-06-22 04:29] LABS: Hematocrit 32 % (35-47); Hemoglobin 10.3 g/dL (12.0-16.0); Mean Corpuscular HGB Conc 32 g/dL (31-36); Mean Corpuscular Hemoglobin 26 pg (27-31); Mean Corpuscular Volume 80 fL (80-97); Mean Platelet Volume 9.1 fL (7.4-10.4); Platelet Count 67 10^3/uL (150-450); Red Blood Count 4.02 10^6 /uL (3.70-4.87); Red Cell Distribution Width 25 % (10-15); White Blood Count 11.4 10^3/uL (3.5-10.8)
[2021-06-22 04:41] LABS: Albumin/Globulin Ratio 0.4 (1-3); Calcium 7.8 mg/dL (8.6-10.3); Direct Bilirubin 0.5 mg/dL (0.03-0.18); EGFR African American 128.5 (>60); EGFR Non-African American 106.2 (>60); Globulin 4.5 g/dL (2-4); Indirect Bilirubin 0.5 mg/dL (0.3-1.0); Magnesium 2.4 mg/dL (1.9-2.7); Potassium 3.6 mmol/L (3.5-5.0); Total Protein 6.5 g/dL (6.4-8.9)
[2021-06-22] MEDS ORDERED: Vancomycin Trough Check NOTE FOLLOW UP ONE (09:30)
[2021-06-22] MEDS: Dexamethasone IV 4 MG/ML VIAL 1 ml VIAL IV SLOW PU SCH (10:01)
[2021-06-22] MEDS: Potassium Chlor 20 meq TAB.ER PO SCH ×2 (10:02→19:59)
[2021-06-22] MEDS: Vancomycin 1000 MG in NS 0.9% 250 ML IVPB SCH (20:49)
[2021-06-22] MEDS ORDERED: Vancomycin 1000 MG in NS 0.9% 250 ML IVPB SCH (22:00)
[2021-06-22 22:52] LABS: Anaplasma phagocytophilum Negative (Negative); B. miyamotoi PCR, B Negative (Negative); Babesia divergens/MO-1 Negative (Negative); Babesia ducani Negative (Negative); Ehrlichia chaffeensis Negative (Negative); Ehrlichia ewingii/canis Negative (Negative); Ehrlichia muris eauclairensis Negative (Negative)
[2021-06-23] MEDS: guaiFENesin 100 mg/5 ml LIQ unit dose cup PO SCH ×2 (03:59→08:57)
[2021-06-23] MEDS: Cefepime 1 GM in Dextrose 1 GM/50 ML BAG IV SCH (03:59)
[2021-06-23 05:20] LABS: ABS Lymphocytes 1.7 10^3/ul (1.0-4.8); ABS Monocytes 0.8 10^3/ul (0-0.8); ABS Neutrophils 8.7 10^3/ul (1.5-7.7); Hematocrit 32 % (35-47); Hemoglobin 10.5 g/dL (12.0-16.0); Lymphocyte % 15.3 %; Mean Corpuscular HGB Conc 33 g/dL (31-36); Mean Corpuscular Hemoglobin 26 pg (27-31); Mean Corpuscular Volume 79 fL (80-97); Mean Platelet Volume 8.8 fL (7.4-10.4); Nucleated Red Blood Cells % 0.1; Platelet Count 69 10^3/uL (150-450); Red Blood Count 3.99 10^6 /uL (3.70-4.87); Red Cell Distribution Width 25 % (10-15); White Blood Count 11.1 10^3/uL (3.5-10.8)
[2021-06-23 05:31] LABS: Albumin 2.1 g/dL (3.2-5.2); Albumin/Globulin Ratio 0.5 (1-3); Calcium 7.8 mg/dL (8.6-10.3); EGFR African American 126.1 (>60); EGFR Non-African American 104.2 (>60); Globulin 4.4 g/dL (2-4); Magnesium 2.2 mg/dL (1.9-2.7); Potassium 3.8 mmol/L (3.5-5.0); Total Bilirubin 0.9 mg/dL (0.2-1.0); Total Protein 6.5 g/dL (6.4-8.9)
[2021-06-23] MEDS: Dexamethasone IV 4 MG/ML VIAL 1 ml VIAL IV SLOW PU SCH (08:57)
[2021-06-23] MEDS: Potassium Chlor 20 meq TAB.ER PO SCH (08:57)
[2021-06-23] MEDS: Vancomycin 1000 MG in NS 0.9% 250 ML IVPB SCH (09:00)
[2021-06-23 12:44] VITALS: BP 121/65
[2021-06-24 07:27] LABS: Sickle Solubility, B Positive
[2021-06-25] MEDS ORDERED: Vancomycin Trough Check NOTE FOLLOW UP ONE (09:30)
== END 2021-06-23 12:45 | disposition home or self-care (01) | DRG 720 ==
LOC: ED 09:48 → SUATTDRO 15:41 → MEDTELE 15:41
PROVIDERS: ADMIT Internal Medicine; ATTEND Internal Medicine

== ENCOUNTER 2024-09-22 09:12 | Observation (INO) ==
[2024-09-22 10:05] LABS: INR 1.4 (0.85-1.14)
[2024-09-22] MEDS ORDERED: Lorazepam PYXIS KEY PRN ×2 (10:05→13:05)
[2024-09-22 10:10] LABS: Hematocrit 36.4 % (35-45); Hemoglobin 12.4 g/dL (11.5-14.3); Mean Corpuscular Hemoglobin 28.3 pg (27-33); Mean Corpuscular Hgb Conc 34.1 g/dL (31-36); Mean Corpuscular Volume 83.1 fL (80-97); Red Blood Count 4.37 10^6/uL (3.63-4.92); Red Cell Distribution Width 17.4 % (12-17); White Blood Count 4.6 10^3/uL (3.8-11.8)
[2024-09-22] MEDS: Acetaminophen IV 1 GM/100ML 1,000 MG/100 ML BAG IV ONE (10:15)
[2024-09-22] MEDS: LORazepam 2 mg VIAL 1 ml IV PUSH ONE (10:15)
[2024-09-22 10:32] LABS: Alcohol, S < 13 mg/dL (<13); Magnesium 1.6 mg/dL (1.9-2.7)
[2024-09-22 10:34] LABS: Albumin 3.3 g/dL (3.2-5.2); Albumin/Globulin Ratio 0.8 (1-3); Calcium 8.4 mg/dL (8.6-10.3); Creatinine, Serum 0.68 mg/dL (0.51-0.95); Globulin 3.9 g/dL (2-4); Potassium 3.5 mmol/L (3.5-5.0); Total Bilirubin 1.2 mg/dL (0.2-1.0); Total Protein 7.2 g/dL (6.4-8.9); eGFR CKD-EPI 101.5 (>60)
[2024-09-22] MEDS: Thiamine 100 MG/ML 2 ml VIAL 100 MG, Folic Acid IV 1 MG, Multiple Vitamin IV ADULT 10 M... IV ONE (11:10)
[2024-09-22 11:14] LABS: ABS Lymphocytes 2.4 10^3/uL (1.0-4.8); ABS Monocytes 0.6 10^3/uL (0.0-0.9); ABS Neutrophils 1.5 10^3/uL (1.5-7.6); ABS Nucleated RBC 0.02 10^3/ul; Eosinophil % 0.9 %; Large Platelets Present; Lymphocyte % 51.4 %; Mean Platelet Volume 10.6 fL (7.5-11.2); Nucleated Red Blood Cells % 0.3 %/100WBC (0.0-0.8); Platelet Count 45 10^3/uL (150-450)
[2024-09-22 11:34] LABS: High Sensitivity Troponin 1 Hr 10 pg/mL (<15)
[2024-09-22] MEDS ORDERED: LORazepam 2 mg VIAL 1 ml IV PUSH PRN (13:05)
[2024-09-22 14:28] LABS: Urine Appearance Clear; Urine Bilirubin Negative (Negative); Urine Blood Negative (Negative); Urine Color Light-Yellow; Urine Glucose Negative (Negative); Urine Ketones Negative (Negative); Urine Nitrite Negative (Negative); Urine Protein Negative (Negative); Urine Specific Gravity 1.006 (1.002-1.030); Urine Urobilinogen Negative (Negative)
[2024-09-22 14:45] LABS: Urine Benzodiazepine Screen None Detected (None Detect); Urine Cannabinoids Screen None Detected (None Detect); Urine Opiates Screen None Detected (None Detect)
[2024-09-22] MEDS: Enoxaparin 40 MG/0.4 ML SYR SUBCUT SCH (22:08)
[2024-09-22] MEDS: Lactated Ringers 1000 ml BAG 1,000 ML IV SCH (22:09)
[2024-09-23 05:37] LABS: Albumin 2.8 g/dL (3.2-5.2); Albumin/Globulin Ratio 0.8 (1-3); Calcium 8.2 mg/dL (8.6-10.3); Creatinine, Serum 0.86 mg/dL (0.51-0.95); Globulin 3.6 g/dL (2-4); Magnesium 1.7 mg/dL (1.9-2.7); Phosphorus 3.5 mg/dL (2.5-5.0); Potassium 4.5 mmol/L (3.5-5.0); Total Bilirubin 1.4 mg/dL (0.2-1.0); Total Protein 6.4 g/dL (6.4-8.9); eGFR CKD-EPI 78.7 (>60)
[2024-09-23 08:58] LABS: Hematocrit 35.3 % (35-45); Mean Corpuscular Hemoglobin 28.5 pg (27-33); Mean Corpuscular Volume 83.8 fL (80-97); Mean Platelet Volume 10.8 fL (7.5-11.2); Platelet Count 37 10^3/uL (150-450); Red Blood Count 4.22 10^6/uL (3.63-4.92); Red Cell Distribution Width 16.9 % (12-17); White Blood Count 4.1 10^3/uL (3.8-11.8)
[2024-09-23 09:03] LABS: ABS Eosinophils 0.1 10^3/uL (0.0-0.5); ABS Lymphocytes 2.2 10^3/uL (1.0-4.8); ABS Monocytes 0.6 10^3/uL (0.0-0.9); ABS Neutrophils 1.2 10^3/uL (1.5-7.6); Eosinophil % 2.3 %; Lymphocyte % 52.9 %
[2024-09-23] MEDS: Magnesium Sulfate 2 gm BAG 2 GM/50 ML BAG IVPB ONE (10:29)
[2024-09-24 06:08] LABS: Calcium 8.6 mg/dL (8.6-10.3); Creatinine, Serum 0.59 mg/dL (0.51-0.95); Potassium 3.9 mmol/L (3.5-5.0); eGFR CKD-EPI 105.1 (>60)
[2024-09-24 08:17] LABS: ABS Eosinophils 0.1 10^3/uL (0.0-0.5); ABS Lymphocytes 2.7 10^3/uL (1.0-4.8); ABS Monocytes 0.7 10^3/uL (0.0-0.9); ABS Neutrophils 1.4 10^3/uL (1.5-7.6); ABS Nucleated RBC 0.01 10^3/ul; Eosinophil % 2.4 %; Hematocrit 36.1 % (35-45); Hemoglobin 12.1 g/dL (11.5-14.3); Large Platelets Present; Lymphocyte % 54.5 %; Mean Corpuscular Hgb Conc 33.4 g/dL (31-36); Mean Corpuscular Volume 83.7 fL (80-97); Mean Platelet Volume 9.9 fL (7.5-11.2); Nucleated Red Blood Cells % 0.1 %/100WBC (0.0-0.8); Platelet Count 36 10^3/uL (150-450); Red Blood Count 4.31 10^6/uL (3.63-4.92); Red Cell Distribution Width 17.3 % (12-17)
[2024-09-24 10:51] VITALS: BP 135/92
== END 2024-09-24 11:06 | disposition home or self-care (01) ==
LOC: EDHOLD 09:12 → ED 09:12 → SUATTDRO 13:15 → MEDTELE 16:25
PROVIDERS: ADMIT Student in an Organized Health Care Education/Training Program; ATTEND Internal Medicine